=== PATIENT | female | born 1960 | race Hispanic/Latino ===

== ENCOUNTER 2018-02-06 04:02 | Emergency (ER) | payer BC ==
[2018-02-06 05:05] LABS: BASOPHILS % (AUTO) 0.5 % (0.0-5.0); EOSINOPHILS % (AUTO) 0.3 % (0.0-8.0); HEMATOCRIT 39.3 % (36-48); LYMPHOCYTES % (AUTO) 22.6 % (21.0-51.0); MEAN CORPUSCULAR VOLUME 85.7 fL (79-99); MONOCYTES % (AUTO) 5.8 % (3.0-13.0); NEUTROPHILS % (AUTO) 70.8 % (40.0-77.0); PLATELET COUNT (AUTO) 316 K/uL (130-400); RED BLOOD CELL COUNT(AUTO) 4.58 MIL/uL (4.00-5.50); RED CELL DISTRIBUTION WIDTH 12.5 % (11.0-15.5); WHITE BLOOD COUNT (AUTO) 7.5 K/uL (4.8-10.8)
[2018-02-06 05:14] LABS: CREATININE 0.6 mg/dL (0.5-1.5); POTASSIUM 3.8 mmol/L (3.5-5.1)
[2018-02-06 05:19] LABS: ALBUMIN 3.6 g/dL (3.5-5.0); BILIRUBIN,TOTAL 0.3 mg/dL (0.2-1.0); TOTAL PROTEIN, SERUM 7.6 g/dL (6.0-8.3)
== END 2018-02-06 05:59 | disposition home or self-care (01) ==
LOC: EDH 04:02
DX: G51.0 Bell's palsy (principal); Z98.51 Tubal ligation status; Z90.710 Acquired absence of both cervix and uterus
CPT/HCPCS: 36415; 70450; 80053; 85025

== ENCOUNTER 2024-03-21 12:28 | Emergency (ER) | payer OTHER, MEDICARE ==
[~2024-03-21] VITALS: Ht 160 cm; Wt 93.0 kg
[2024-03-21 13:57] LABS: BASOPHILS # (AUTO) 0.03 K/uL (0.00-0.20); BASOPHILS % (AUTO) 0.5 % (0.0-5.0); EOSINOPHILS # (AUTO) 0.14 K/uL (0.00-0.70); EOSINOPHILS % (AUTO) 2.3 % (0.0-8.0); HEMATOCRIT 42.7 % (36-48); IMMATURE GRANULOCYTE ABSOLUTE 0.02 K/uL (0-1); LYMPHOCYTES # (AUTO) 1.6 K/uL (1.0-4.8); LYMPHOCYTES % (AUTO) 26.5 % (21.0-51.0); MEAN CORPUSCULAR HEMOGLOBIN 28.7 pg (27.0-33.0); MEAN CORPUSCULAR HGB CONC 33.5 g/dL (32.0-36.0); MEAN CORPUSCULAR VOLUME 85.7 fL (79-99); MONOCYTES # (AUTO) 0.3 K/uL (0.1-1.0); MONOCYTES % (AUTO) 5.3 % (3.0-13.0); NEUTROPHILS % (AUTO) 65.1 % (40.0-77.0); PLATELET COUNT (AUTO) 305 K/uL (130-400); RED BLOOD CELL COUNT(AUTO) 4.98 MIL/uL (4.00-5.50); RED CELL DISTRIBUTION WIDTH 12.3 % (11.0-15.5); WHITE BLOOD COUNT (AUTO) 6.1 K/uL (4.8-10.8)
[2024-03-21] MEDS: KETOROLAC 15MG/ML VIAL (15MG/ML) IV ONE (13:57)
[2024-03-21 14:10] LABS: CREATININE 0.6 mg/dL (0.5-1.0); POTASSIUM 4.2 mmol/L (3.5-5.1)
[2024-03-21 14:28] LABS: APPEARANCE,URINE CLEAR (CLEAR); BILIRUBIN,URINE NEGATIVE (NEGATIVE); COLOR,URINE LIGHT-YELLOW (YELLOW); GLUCOSE, URINE (UA) NEGATIVE (NEGATIVE); KETONES,URINE NEGATIVE (NEGATIVE); LEUKOCYTE ESTERASE ,URINE 25 Leu/uL (NEGATIVE); NITRATE,URINE NEGATIVE (NEGATIVE); OCCULT BLOOD,URINE NEGATIVE (NEGATIVE); PROTEIN,URINE NEGATIVE (NEGATIVE); UROBILINOGEN,URINE 0.2 mg/dL (0.2-1.0)
[2024-03-21 14:34] LABS: ADD UA MICROSCOPIC YES
[2024-03-21 14:36] LABS: ALBUMIN 3.7 g/dL (3.5-5.0); BILIRUBIN,DIRECT 0.1 mg/dL (0.0-0.3); BILIRUBIN,TOTAL 0.4 mg/dL (0.2-1.0)
[2024-03-21 14:36] LABS: MUCUS,URINE RARE LPF (None Seen); RBC,URINE 0-1 /HPF (0-1); SQUAMOUS EPITHELIAL CELL,UR FEW /HPF (0-2)
[2024-03-21] MEDS ORDERED: NAPR-1196 PO (14:51)
[2024-03-21] MEDS ORDERED: ONDA-243 PO (14:51)
[2024-03-21] MEDS: MORPHINE 4 MG SYG IVP ONE (15:33)
[2024-03-21 15:35] VITALS: BP 141/56; PULSE 70; RESP 16; O2SAT 98
== END 2024-03-21 15:51 | disposition home or self-care (01) ==
LOC: EDH 12:28
DX: R10.9 Unspecified abdominal pain (principal); R11.0 Nausea; R07.0 Pain in throat; Z79.899 Other long term (current) drug therapy; Z96.22 Myringotomy tube(s) status
CPT/HCPCS: 99285; 74176; 96374; 96375; 80076; 84484; 80048; 85025; 81001; 36415; 93005; J2270; J1885

== ENCOUNTER → 2025-03-26 | Outpatient (CLI) | payer OTHER ==
[~2025-03-26] MED LIST: NAPR-1196 PO; ONDA-243 PO
--- NOTE | 2025-03-26 15:05 | HMCIMG ---
EXAM: CR left Shoulder, 2 View. CLINICAL HISTORY: Pain in left shoulder COMPARISON: None provided. FINDINGS: BONES: No acute fracture or aggressive appearing osseous lesion. JOINTS: No dislocation. Mild acromioclavicular and glenohumeral joint osteoarthritis. SOFT TISSUES: The soft tissues are unremarkable. IMPRESSION: 1. No acute findings. 2. Mild acromioclavicular and glenohumeral joint osteoarthritis. /[place]
--- NOTE | 2025-03-26 15:06 | HMCIMG ---
EXAM: CR Lumbar Spine, 3 View. CLINICAL HISTORY: Radiculopathy, lumbar region COMPARISON: None provided. FINDINGS: The lumbar alignment is within normal limits. Straightening of the lumbar spine may reflect paraspinal muscle spasm. There is lumbar spondylosis evident by anterior osteophytes and syndesmophytes at multiple levels. There is mild to moderate multilevel degenerative disc disease, more pronounced at L3-L4. Vertebral body heights are maintained without displaced fracture. There is no spondylolisthesis. Paraspinal musculature and soft tissues appear within normal limits. IMPRESSION: 1. No acute osseous injury. 2. Multilevel lumbar spondylosis and degenerative disc disease, most pronounced at L3-L4. /[place]
--- NOTE | 2025-03-26 15:07 | HMCIMG ---
EXAM: CR Abdomen, 2 View. CLINICAL HISTORY: Left upper quadrant pain COMPARISON: None provided. FINDINGS: BOWEL: The bowel gas pattern is within normal limits. Abundant colonic fecal matter may reflect constipation. PERITONEUM/SOFT TISSUES: No free air evident. No pathologic appearing calcification. BONES: No aggressive appearing osseous lesion seen. IMPRESSION: The bowel gas pattern is within normal limits. Abundant colonic fecal matter may reflect constipation. /[place]
== END | disposition home or self-care (01) ==
LOC: RAH 13:55
PROVIDERS: ATTEND Family Medicine
DX: M19.012 Primary osteoarthritis, left shoulder (principal); M47.26 Other spondylosis with radiculopathy, lumbar region; M51.16 Intervertebral disc disorders with radiculopathy, lumbar region; M25.552 Pain in left hip; R10.12 Left upper quadrant pain; M25.512 Pain in left shoulder; R10.2 Pelvic and perineal pain
CPT/HCPCS: 72100; 73030; 74018

== ENCOUNTER → 2025-04-14 | Outpatient (CLI) | payer OTHER ==
--- NOTE | 2025-04-15 16:41 | HMCIMG ---
EXAM: Nuclear Medicine Gastric Emptying Scan. INDICATION: Abdominal pain REFERENCE EXAMINATION: CT dated March 21, 2024 TECHNIQUE: 2.1 mCi of Tc99m sulfur colloid with egg whites, 2 slices of bread/jam, 4 ounces of water. FINDINGS: Transit of radiopharmaceuticals is seen from the stomach into the small bowel. Half gastric emptying was achieved in 49 minutes. IMPRESSION: Scintigraphic findings suggest normal gastric emptying. /[place]
== END | disposition home or self-care (01) ==
LOC: RAH 07:13
PROVIDERS: ATTEND Internal Medicine Gastroenterology
DX: R10.12 Left upper quadrant pain (principal); R10.9 Unspecified abdominal pain; R11.0 Nausea
CPT/HCPCS: 78264; A9541

== ENCOUNTER 2025-05-13 06:32 | Day surgery (SDC) | payer OTHER ==
[2025-05-13] VITALS (10 sets, daily range): BP systolic 94–152; BP diastolic 48–77; PULSE 59–77; RESP 14–18; TEMP 97–98.5
[~2025-05-13] VITALS: Ht 160 cm; Wt 91.6 kg
[2025-05-13] MEDS ORDERED: GABA300C PO (07:04)
[2025-05-13] MEDS ORDERED: ATOR10 PO (07:04)
[2025-05-13] MEDS ORDERED: ERGO500093 PO (07:04)
[2025-05-13] MEDS: 0.9%NACL 1000ML 1,000 ML IV ONE (07:06)
--- NOTE | 2025-05-13 09:10 | NUR ---
BOTH PT AND SPOUSE GIVEN VERBAL AND WRITTEN DISCHARGE INSTRUCTIONS. IV REMOVED SITE ASYMPTOMATIC. PT TAKEN OUT VIA WHEELCHAIR DRIVING.
== END 2025-05-13 09:15 | disposition home or self-care (01) ==
LOC: DAH 06:32
PROVIDERS: ATTEND Internal Medicine Gastroenterology
DX: R10.12 Left upper quadrant pain (principal); K29.50 Unspecified chronic gastritis without bleeding; K86.9 Disease of pancreas, unspecified; K31.89 Other diseases of stomach and duodenum; K92.9 Disease of digestive system, unspecified; D13.1 Benign neoplasm of stomach; Z80.0 Family history of malignant neoplasm of digestive organs; K21.9 Gastro-esophageal reflux disease without esophagitis; Z90.710 Acquired absence of both cervix and uterus; Z98.51 Tubal ligation status; Z79.899 Other long term (current) drug therapy
CPT/HCPCS: 43259; 43239; J7030; J2704 ×2; A4620; A4215; A4223; A7002; A4222; A4221; A4663; A4606; J3490